=== PATIENT | male | born 1950 | race Caucasian/White ===

== ENCOUNTER 2018-03-17 12:25 | Observation (INO) | payer MEDICARE ==
[2018-03-17] MEDS ORDERED: SODIUM CHLORIDE 0.9% 500 ML IV STA (12:52)
--- NOTE | 2018-03-17 12:54 | ED ---
General Adult HPI - General Chief complaint: Neuro Symptoms/Deficit Stated complaint: rt arm numbess, weakness Time Seen by Provider: 03/17/18 12:25 Source: patient, RN notes reviewed Mode of arrival: wheelchair Limitations: no limitations - History of Present Illness Initial comments: This is a 67-year-old male with no significant past medical history. Patient states today about an hour prior to arrival he lost coordination of his right hand. Patient states when this down by his waist he felt as though he can move it fairly good but when he was up. Old to the ground he had no control at all. Patient states his last about 35 minutes total and about 10 minutes with significant symptoms. Patient states his symptoms have completely resolved at this point. Patient states he's had a little bit of a headache lately but not very bad right now. Patient denies any new or increased headache at this point time. Patient denies any visual disturbance patient denies patient comes. Patient denies any chest pain palpitations difficulty breathing shortness of breath. Patient denies abdominal pain patient denies nausea vomiting or diarrhea. Patient denies any recent fever chills or cough. Patient denies any similar symptoms in the past. - Related Data Home Medications Medication Instructions Recorded Confirmed Cefdinir [Omnicef] 300 mg PO Q12HR 03/17/18 03/17/18 Levothyroxine Sodium 150 mcg PO DAILY 03/17/18 03/17/18 Loratadine [Claritin] 10 mg PO DAILY 03/17/18 03/17/18 Allergies Allergy/AdvReac Type Severity Reaction Status Date / Time Penicillins Allergy Rash/Hives Verified 03/17/18 13:06 Review of Systems ROS Statement: Those systems with pertinent positive or pertinent negative responses have been documented in the HPI. ROS Other: All systems not noted in ROS Statement are negative. 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 Patient is nontoxic and well- hydrated and is in mild distress. ENT: Neck is soft and supple. No significant lymphadenopathy is noted. Oropharynx is clear. Moist mucous membranes. Neck has full range of motion without eliciting any pain. EYES: The sclera were anicteric and conjunctiva were pink and moist. Extraocular movements were intact and pupils were equal round and reactive to light. Eyelids were unremarkable. PULMONARY: Unlabored respirations. Good breath sounds bilaterally. No audible rales rhonchi or wheezing was noted. CARDIOVASCULAR: There is a regular rate and rhythm without any murmurs gallops or rubs. ABDOMEN: Soft and nontender with normal bowel sounds. No palpable organomegaly was noted. There is no palpable pulsatile mass. SKIN: Skin is clear with no lesions or rashes and otherwise unremarkable. NEUROLOGIC: Patient is alert and oriented x3. Cranial nerves II through XII are grossly intact. Motor and sensory are also intact. Normal speech, volume and content. Symmetrical smile. Cerebellar exam grossly intact. MUSCULOSKELETAL: Normal extremities with adequate strength and full range of motion. No lower extremity swelling or edema. No calf tenderness. LYMPHATICS: No significant lymphadenopathy is noted PSYCHIATRIC: Normal psychiatric evaluation. Normal interpersonal interactions appears functionally intact in deals appropriately with others. No signs of depression. No signs of anxiety. Limitations: no limitations Course Vital Signs 03/17/18 12:36 Temperature 98.2 F Pulse Rate 61 Respiratory 18 Rate Blood Pressure 171/96 O2 Sat by Pulse 100 Oximetry Medical Decision Making - Medical Decision Making EKG shows sinus bradycardia 57 bpm [place] interval is 174 QRS is 94 Q-T intervals 42 QTC is 391. Patient's EKG shows no ST segment elevation or depression or T wave abnormalities are noted. Patient's chest x-ray showed no acute normalities. Patient's CT of the brain showed no acute normalities. I will begin to reevaluate the patient patient was having no symptoms whatsoever at this time. I spoke with Dr. Vuong she agreed to admit the patient admitted the patient wrote admitting orders I consult the neurology - Lab Data Result diagrams: 03/17/18 13:05 03/17/18 13:05 Lab Results 03/17/18 03/17/18 03/17/18 Range/Units 12:54 13:05 13:05 WBC 6.4 (3.8-10.6) k/uL RBC 4.58 (4.30-5.90) m/uL Hgb 13.4 (13.0-17.5) gm/dL Hct 41.6 (39.0-53.0) % MCV 91.0 (80.0-100.0) fL MCH 29.2 (25.0-35.0) pg MCHC 32.2 (31.0-37.0) g/dL RDW 13.5 (11.5-15.5) % Plt Count 188 (150-450) k/uL Neutrophils % 62 % Lymphocytes % 23 % Monocytes % 8 % Eosinophils % 5 % Basophils % 1 % Neutrophils # 4.0 (1.3-7.7) k/uL Lymphocytes # 1.5 (1.0-4.8) k/uL Monocytes # 0.5 (0-1.0) k/uL Eosinophils # 0.3 (0-0.7) k/uL Basophils # 0.1 (0-0.2) k/uL PT (9.0-12.0) sec INR (<1.2) APTT (22.0-30.0) sec Sodium (137-145) mmol/L Potassium (3.5-5.1) mmol/L Chloride (98-107) mmol/L Carbon Dioxide (22-30) mmol/L Anion Gap mmol/L BUN (9-20) mg/dL Creatinine (0.66-1.25) mg/dL Est GFR (CKD-EPI)AfAm (>60 ml/min/1.73 sqM) Est GFR (CKD-EPI)NonAf (>60 ml/min/1.73 sqM) Glucose (74-99) mg/dL POC Glucose (mg/dL) 95 (75-99) mg/dL POC Glu Balance Bridge Assembler ID Silvia Alexander Calcium (8.4-10.2) mg/dL Total Bilirubin (0.2-1.3) mg/dL AST (17-59) U/L ALT (21-72) U/L Alkaline Phosphatase (38-126) U/L Total Creatine Kinase 160 (55-170) U/L CK-MB (CK-2) 1.7 (0.0-2.4) ng/mL CK-MB (CK-2) Rel Index 1.1 Troponin I <0.012 (0.000-0.034) ng/mL Total Protein (6.3-8.2) g/dL Albumin (3.5-5.0) g/dL 03/17/18 03/17/18 Range/Units 13:05 13:05 WBC (3.8-10.6) k/uL RBC (4.30-5.90) m/uL Hgb (13.0-17.5) gm/dL Hct (39.0-53.0) % MCV (80.0-100.0) fL MCH (25.0-35.0) pg MCHC (31.0-37.0) g/dL RDW (11.5-15.5) % Plt Count (150-450) k/uL Neutrophils % % Lymphocytes % % Monocytes % % Eosinophils % % Basophils % % Neutrophils # (1.3-7.7) k/uL Lymphocytes # (1.0-4.8) k/uL Monocytes # (0-1.0) k/uL Eosinophils # (0-0.7) k/uL Basophils # (0-0.2) k/uL PT 9.8 (9.0-12.0) sec INR 1.0 (<1.2) APTT 23.4 (22.0-30.0) sec Sodium 141 (137-145) mmol/L Potassium 4.6 (3.5-5.1) mmol/L Chloride 109 H (98-107) mmol/L Carbon Dioxide 24 (22-30) mmol/L Anion Gap 8 mmol/L BUN 22 H (9-20) mg/dL Creatinine 1.09 (0.66-1.25) mg/dL Est GFR (CKD-EPI)AfAm 82 (>60 ml/min/1.73 sqM) Est GFR (CKD-EPI)NonAf 71 (>60 ml/min/1.73 sqM) Glucose 98 (74-99) mg/dL POC Glucose (mg/dL) (75-99) mg/dL POC Glu Balance Bridge Assembler ID Calcium 10.0 (8.4-10.2) mg/dL Total Bilirubin 0.3 (0.2-1.3) mg/dL AST 25 (17-59) U/L ALT 31 (21-72) U/L Alkaline Phosphatase 59 (38-126) U/L Total Creatine Kinase (55-170) U/L CK-MB (CK-2) (0.0-2.4) ng/mL CK-MB (CK-2) Rel Index Troponin I (0.000-0.034) ng/mL Total Protein 6.9 (6.3-8.2) g/dL Albumin 4.4 (3.5-5.0) g/dL Disposition Clinical Impression: Transient cerebral ischemia Disposition: ADMITTED IP TO THIS HOSP Referrals: Nonstaff,Physician [Primary Care Provider] - 1-2 days Time of Disposition: 14:04
[2018-03-17 12:56] LABS: Glucose,Whole Blood 95 mg/dL (75-99)
[2018-03-17 13:21] LABS: Basophils # (A) 0.1 k/uL (0-0.2); Basophils % (A) 1 %; Eosinophils # (A) 0.3 k/uL (0-0.7); Eosinophils % (A) 5 %; HCT 41.6 % (39.0-53.0); HGB 13.4 gm/dL (13.0-17.5); Lymphocytes # (A) 1.5 k/uL (1.0-4.8); Lymphocytes % (A) 23 %; MCH 29.2 pg (25.0-35.0); MCHC 32.2 g/dL (31.0-37.0); Mean Platelet Volume 9.1; Monocytes # (A) 0.5 k/uL (0-1.0); Monocytes % (A) 8 %; Neutrophils % (A) 62 %; Platelet Count 188 k/uL (150-450); RBC 4.58 m/uL (4.30-5.90); RDW 13.5 % (11.5-15.5); WBC 6.4 k/uL (3.8-10.6)
[2018-03-17 13:30] LABS: Partial Thromboplastin Time 23.4 sec (22.0-30.0); Prothrombin Time 9.8 sec (9.0-12.0)
[2018-03-17 13:32] LABS: Albumin 4.4 g/dL (3.5-5.0); Potassium 4.6 mmol/L (3.5-5.1); Total Bilirubin 0.3 mg/dL (0.2-1.3); Total Protein 6.9 g/dL (6.3-8.2)
--- NOTE | 2018-03-17 13:33 | XR ---
EXAMINATION TYPE: XR chest 2V DATE OF EXAM: 03/17/2018 HISTORY: altered mental status. REFERENCE: NONE. FINDINGS: The lungs are clear. Pleural space are clear. The heart is not enlarged. IMPRESSION: NORMAL CHEST.
--- NOTE | 2018-03-17 13:33 | CT ---
EXAMINATION TYPE: CT brain wo con DATE OF EXAM: 03/17/2018 COMPARISON: NONE HISTORY: Right hand, arm weakness CT DLP: 1067.7 mGycm Automated exposure control for dose reduction was used. FINDINGS: There are mild atrophic changes. There is no acute focal lesion, mass effect or midline shift identif ied. I do not see evidence of intracranial blood. There is a 1.3 cm retention cyst or polyp arising f rom the anterior wall of the left maxillary sinus and a smaller retention cyst or polyp seen arising from the medial wall of the right maxillary sinus. There is also minimal mucoperiosteal thickening in volving one of the ethmoidal air cells on the left. The mastoids are clear. The bony calvarium is int act. IMPRESSION: 1. NO ACUTE INTRACRANIAL ABNORMALITY. 2. CHRONIC SINUS MUCOSAL DISEASE. 3. MILD DEGENERATIVE CHANGE.
[2018-03-17 13:39] LABS: Creatine Kinase 160 U/L (55-170)
[2018-03-17 13:52] LABS: Creatine Kinase MB 1.7 ng/mL (0.0-2.4); Troponin I <0.012 ng/mL (0.000-0.034)
[2018-03-17] MEDS ORDERED: DOCUSATE 100 MG CAP PO PRN (18:07)
[2018-03-17] MEDS ORDERED: MELATONIN 5 MG TABLET PO PRN (18:07)
[2018-03-17] MEDS ORDERED: ACETAMINOPHEN TAB 325 MG TAB PO PRN (18:07)
--- NOTE | 2018-03-17 18:07 | P.HPIM ---
History of Present Illness H&P Date: 03/17/18 Chief Complaint: right arm incoordination Patient is a 67-year-old male with a past medical history of hypothyroidism, squamous cell cancer of the neck, and ALLERGIES who presented with complaints of right arm discoordination. In the ER he underwent an extensive evaluation. On arrival his blood pressure was slightly elevated at 171/96. Initial laboratory analysis was unremarkable. CT of the head showed chronic sinusitis. Chest x-ray was negative. EKG showed sinus bradycardia. There is concern for TIA and he was admitted to the selective care unit for further monitoring. Patient seen and examined at bedside with present. He states he was visiting friends today and people were out in the yard. He noticed when he raised his right hand to put on some suntan location and that he was having difficulty controlling it. He states "it was like my hand was drunk but I wasn' t". When he put his hand near his waist the symptoms seemed to resolve, but when he raises again they recurred. He took a baby aspirin at home. He also noted some right shoulder numbness. The symptoms lasted approximately one hour and then he returned to baseline. He did not notice any definitive weakness of his arm during this time. He did not have any headache, blurry vision, loss of vision, difficulty with speech, other numbness or tingling, or other weakness. His only recent medication has been Ceftin ear that he started taking on Sunday for concerns of sinusitis. He had a runny nose, jaw pain on chewing, and ear pressure. He has had this many times in the past. He has never had a history of a stroke. He follows with Dr. Boudreaux in [place]. He does take levothyroxine on a chronic basis but no additional medications. He has a history of tobacco abuse who quit 20 years ago. He does have 3 beers daily. Review of Systems Pertinent positives and negatives as discussed in HPI, a complete review of systems was performed and all other systems are negative. 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 Medications and Allergies Home Medications Medication Instructions Recorded Confirmed Type Cefdinir [Omnicef] 300 mg PO Q12HR 03/17/18 03/17/18 History Levothyroxine Sodium 150 mcg PO DAILY 03/17/18 03/17/18 History Loratadine [Claritin] 10 mg PO DAILY 03/17/18 03/17/18 History Allergies Allergy/AdvReac Type Severity Reaction Status Date / Time Penicillins Allergy Rash/Hives Verified 03/17/18 13:06 Physical Exam Osteopathic Statement: *. No significant issues noted on an osteopathic structural exam other than those noted in the History and Physical/Consult. Vitals: Vital Signs Temp Pulse Pulse Resp BP BP Pulse Ox 03/17/18 16:00 65 16 03/17/18 14:41 97.5 F L 55 L 16 164/99 100 03/17/18 14:15 62 180/90 99 03/17/18 14:05 61 20 189/95 99 03/17/18 12:36 98.2 F 61 18 171/96 100 Intake and Output 03/17/18 03/17/18 03/17/18 06:59 14:59 22:59 Intake Total 10 Balance 10 Intake: IV 10 Invasive Line 1 10 Other: Voiding Method Toilet Weight 96.162 kg General: non toxic, no distress, appears at stated age, normal weight Derm: no unusual rashes/lesions no unusual ecchymoses, warm, dry Head: atraumatic, normocephalic, symmetric Eyes: EOMI, no lid lag, anicteric sclera, pupils equal round reactive to light ENT: Nose and ears atraumatic, no thrush, no pharyngeal erythema Neck: No thyromegaly, no cervical lymphadenopathy, trachea midline, supple, loss of muscle tissue over right neck with large surgical scar secondary to neck dissection. Mouth: no lip lesion, mucus membranes moist Cardiovascular: S1S2 reg, no murmur, positive posterior tibial pulse bilateral, no edema, capillary refill less than 2 seconds Lungs: CTA bilateral, no rhonchi, no rales , no accessory muscle use Abdominal: soft, nontender to palpation, no guarding, no appreciable organomegaly, normal bowel sounds Ext: no gross muscle atrophy, muscle strength 5 out of 5 in all 4 extremities grossly, no contractures, Neuro: CN II-XI grossly intact, light touch intact all 4 extremities, finger to nose within normal limits, no dysdiadochokinesis, normal [id number] Psych: Alert, oriented, appropriate affect Results CBC & Chem 7: 03/17/18 13:05 03/17/18 13:05 Labs: Abnormal Lab Results - Last 24 Hours (Table) 03/17/18 Range/Units 13:05 Chloride 109 H (98-107) mmol/L BUN 22 H (9-20) mg/dL Comments: EKG is reviewed by myself revealed sinus bradycardia, normal axis, normal intervals, and no significant ST-T wave changes Chest x-ray: report reviewed CT Scan - head: report reviewed Thrombosis Risk Factor Assmnt - DVT/VTE Prophylaxis DVT/VTE Prophylaxis: Low risk, early ambulation encouraged - Choose All That Apply Any of the Below Risk Factors Present?: No Other Risk Factors: Yes Each Risk Factor Represents 2 Points: Age 61-74 years Other congenital or acquired thrombophilia - If yes, enter type in comment: No Thrombosis Risk Factor Assessment Total Risk Factor Score: 2 Thrombosis Risk Factor Assessment Level: Low Risk Assessment and Plan Assessment: Probable TIA with right-sided hand discoordination -Telemetry, echocardiogram, CTA of the head and neck, aspirin, statin, neurology consult, neuro checks, PT/OT/speech evaluation, hemoglobin A1c and lipid profile in a.m. Elevated blood pressure without diagnosis of hypertension -Likely reactive to TIA, continue to follow blood pressures, would not treat unless systolic of greater than 200 or diastolic greater than 110 based on probable TIA within the last 24 hours. If remains elevated, then consider treatment Chronic sinusitis-continue cefdinir on discharge, Claritin Daily alcohol use-if prolonged hospital stay can consider CIWA protocol and thiamine supplementation. The patient is placed in observation with an anticipated less than 2 per night stay for evaluation of TIA. Surrogate decision-maker: CODE STATUS:Full DVT prophylaxis: SCD Discussed with: Patient, , nursing Anticipated discharge date: 03/[address]: home A total of 55 minutes was spent on the care of this complex patient more than 50 % of the time was spent in counseling and care coordination.
[2018-03-17] MEDS ORDERED: ATORVASTATIN 40 MG TAB PO SCH (21:00)
--- NOTE | 2018-03-17 21:52 | CT ---
EXAMINATION TYPE: CT angio head neck DATE OF EXAM: 03/17/2018 HISTORY: Hx of carotid dissection COMPARISON: CT brain dated 03/17/2018 CT DLP: 373.3 mGycm. Automated Exposure Control for Dose Reduction was Utilized. TECHNIQUE: CTA scan of the neck is performed with IV Contrast, patient injected with 65 mL of Isovue 370, axial images are obtained, coronal and sagittal reformatted images are reviewed. Three-D recons tructed images are created on an independent workstation and reviewed. FINDINGS: Carotid/Vascular Structures: Right common carotid artery and internal carotid are diminutive and supe rficially located with partial resection or atrophy of the right sternocleidomastoid noted. This may relate to prior surgical intervention for the patient's history of carotid dissection. However the ri ght carotid artery in its cervical portions appears patent as well as its visualized intracranial por tions with only minimal calcific atheromatous change of the cavernous portion. The left common caroti d artery is patent. Minimal nonhemodynamically significant stenosis is seen of the left carotid bulb. There is approximately 40% luminal narrowing in a segment of 6 mm within the proximal left internal carotid artery due to noncalcific atheromatous plaquing. Remaining portions of the cervical internal carotid artery are patent. Minimal nonhemodynamically significant calcific plaquing is seen in the ca vernous and supraclinoid portions of the left internal carotid artery. The basilar artery is patent as is the right and left vertebral artery. There is a conventional three -vessel branch pattern of the aortic arch. The posterior communicating arteries are diminutive but [place] pear intact. Therefore the [place] appears intact. No focal intracranial stenosis is identif ied. No intracranial aneurysm is seen. Other: Mild to moderate multilevel degenerative changes of the cervical spine are seen. Left maxillar y mucosal retention cyst versus polyp appears 1.1 cm. Mucosal retention cyst of the left ethmoid sinu s measures1.0 cm. Remaining visualized portions of the paranasal sinuses and mastoid air cells are we ll aerated. Multiple dental fillings creates spray artifact and partially obscure adjacent direct wallace rounding visualization. Minimal centrilobular emphysematous changes are seen of the lung apices. Additionally there is biapic al pleural-parenchymal scarring with air bronchograms, right greater than left suggesting a component of fibrosis with traction cylindrical bronchiectasis. IMPRESSION: 1. Diminutive caliber and superficial location of the right common carotid artery and internal caroti d artery in comparison to the left without intimal flap to indicate current dissection. No vascular o cclusion. Findings may be sequela of prior surgical intervention for dissection given the patient's h istory. 2. Approximately 40% short segment nonhemodynamically significant stenosis of the left internal carot id artery spanning 6 mm just distal to the bifurcation. 3. Biapical pleural parenchymal scarring with cylindrical traction bronchiectasis suggesting a compon ent of fibrosis. 4. No evidence of vascular occlusion or aneurysm.
--- NOTE | 2018-03-17 23:24 | P.CNNES ---
History of Present Illness Consult date: 03/17/18 History of Present Illness: The patient is a 67-year-old right-handed white male who states that he was applying suntan lotion today to his arms and he noticed his right arm was clumsy and numb. He felt that he lost control of his right arm. This lasted for 45-60 minutes. By the time he came to the emergency room his symptoms had resolved completely. He had only some slight numbness over the right shoulder area and that to resolved within shortly after coming to the ER. The patient denies having had any similar episode in the past. The patient denied any numbness or clumsiness of the right leg. He denied any other neurologic complaints such as speech disturbance blurred vision double vision ataxia or focal weakness. The patient had a CT of the brain which showed no acute intracranial abnormality. The patient had a CT angiogram of the head and neck which showed diminutive caliber of the right common carotid artery and internal carotid artery in comparison to the left. There was no vascular occlusion. There was evidence of prior surgical intervention. There was also proximally 40% nonhemodynamically significant stenosis of the left internal carotid artery. 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 Medications and Allergies Home Medications Medication Instructions Recorded Confirmed Type Cefdinir [Omnicef] 300 mg PO Q12HR 03/17/18 03/17/18 History Levothyroxine Sodium 150 mcg PO DAILY 03/17/18 03/17/18 History Loratadine [Claritin] 10 mg PO DAILY 03/17/18 03/17/18 History Allergies Allergy/AdvReac Type Severity Reaction Status Date / Time Penicillins Allergy Rash/Hives Verified 03/17/18 13:06 Physical Examination - Vital Signs Vital Signs: Vital Signs Temp Pulse Pulse Resp BP BP Pulse Ox 03/17/18 20:00 98.3 F 60 18 140/78 98 03/17/18 16:00 65 16 03/17/18 14:41 97.5 F L 55 L 16 164/99 100 03/17/18 14:15 62 180/90 99 03/17/18 14:05 61 20 189/95 99 03/17/18 12:36 98.2 F 61 18 171/96 100 Intake and Output 03/17/18 03/17/18 03/18/18 14:59 22:59 06:59 Intake Total 10 Balance 10 Intake: IV 10 Invasive Line 1 10 Other: Voiding Method Toilet Weight 96.162 kg - Constitutional General appearance: average body habitus - EENT EENT: PERRL, hearing intact, vision intact - Respiratory Respiratory: lungs clear - Cardiovascular Cardiovascular: regular rate, normal S1 - Neurologic Neurologic exam: Mental status: He was awake alert and oriented. There is no a aphasia or dysarthria. Cranial nerve examination: PERRL, EOMI, VFF, face symmetric, tongue midline Speech examination: intact Detailed motor examination: grossly full strength in all extremities Detailed sensory examination: intact Reflexes: 2+: bicep, knee - Psychiatric Psychiatric: mood/affect appropriate Results - Laboratory Findings CBC and BMP: 03/17/18 13:05 03/17/18 13:05 Abnormal Lab Findings: Abnormal Labs 03/17/18 13:05 Chloride 109 H BUN 22 H Assessment and Plan (1) Transient cerebral ischemia Current Visit: Yes Status: Acute SNOMED Code(s): 224029044 Plan: The patient is a 67-year-old man who presents with a transient episode of right arm clumsiness and numbness. The patient has likely had a TIA. He has been placed on aspirin. He had a CT of the brain which showed no acute abnormality. He had a CTA of the head and neck which did not show any hemodynamically significant stenosis. Recommend echocardiogram. Recommend MRI of the brain
[2018-03-17 23:54] LABS: Cholesterol 233 mg/dL (<200); HDL Cholesterol 68 mg/dL (40-60); LDL Cholesterol,Calculated 127 mg/dL (0-99); Triglycerides 191 mg/dL (<150)
[2018-03-18 08:00] VITALS: RESP 16
[2018-03-18] MEDS ORDERED: ASPIRIN 325 MG TAB PO SCH (09:00)
[2018-03-18] MEDS ORDERED: LORATADINE 10 MG TAB PO SCH (09:00)
[2018-03-18] MEDS ORDERED: FLUTICASONE 50MCG/SPRAY NASAL 16GM EA NOSTRIL SCH (09:00)
--- NOTE | 2018-03-18 11:17 | MR ---
EXAMINATION TYPE: MR brain wo/w con DATE OF EXAM: 03/18/2018 COMPARISON: CT brain from yesterday. HISTORY: tia/history of cancer. Patient admitted one day earlier for acute onset neuro deficits or ri ght hand and arm weakness TECHNIQUE: Multiplanar, multisequence images of the brain and brainstem is performed without and with IV contras t, utilizing 10 mL intravenous Gadavist . FINDINGS: Diffusion weighted images demonstrate no evidence of a recent infarct or other diffusion ab normality. There is no worrisome extra-axial fluid collection. There is mild ventricular and sulcal prominence consistent with mild diffuse age-related cerebral atrophy. There are scattered small foci of T2 hyperintensity seen throughout the superficial deep and periventricular white matter. There is a nonspecific confluent area near temporal parietal junction axial image 16. Midline structures demonstrate normal morphology. The craniocervical junction appears within normal limits. Post contrast images demonstrate no abnormal enhancement. The dural venous sinuses appear pa tent. Nasal septum is redemonstrated deviated to right of midline. There is redemonstration of 1.3 c m mucous retention cyst or polyp in the anterior left maxillary sinus. There is mild mucosal thickeni ng involving ethmoid sinuses bilaterally. The globes are intact. IMPRESSION: 1. No evidence of a recent infarct. 2. Mild diffuse age-related cerebral atrophy and moderate nonspecific white matter changes most likel y on basis of product of chronic small vessel ischemic change. No suspicious enhancement is noted. 3. Chronic paranasal sinus disease redemonstrated.
--- NOTE | 2018-03-18 12:16 | ECHOF ---
Referral Reason:Thrombus MEASUREMENTS -------- HEIGHT: 182.9 cm WEIGHT: 98.4 kg BP: 154/91 RVIDd: 3.0 cm (< 3.3) IVSd: 1.3 cm (0.6 - 1.1) LVIDd: 4.1 cm (3.9 - 5.3) LVPWd: 1.3 cm (0.6 - 1.1) IVSs: 1.6 cm LVIDs: 2.7 cm LVPWs: 1.7 cm LA Diam: 3.4 cm (2.7 - 3.8) LAESV Index (A-L): 27.51 ml/m Ao Diam: 3.4 cm (2.0 - 3.7) AV Cusp: 2.2 cm (1.5 - 2.6) MV EXCURSION: 16.703 mm (> 18.000) MV EF SLOPE: 67 mm/s (70 - 150) EPSS: 0.5 cm MV E Patric: 0.70 m/s MV DecT: 279 ms MV A Patric: 0.76 m/s MV E/A Ratio: 0.93 FINDINGS -------- Sinus rhythm. This was a technically good study. The left ventricular size is normal. There is mild concentric left ventricular hypertrophy. Overa ll left ventricular systolic function is normal with, an EF between 60 - 65 %. The right ventricle is normal in size. Normal LA size by volume 22+/-6 ml/m2. The right atrium is normal in size. The aortic valve is trileaflet and appears structurally normal. Mild mitral annular calcification present. The tricuspid valve appears structurally normal. Trace/mild (physiologic) pulmonic regurgitation. The aortic root size is normal. IVC Not well visulized. There is no pericardial effusion. CONCLUSIONS -------- 1. Sinus rhythm. 2. This was a technically good study. 3. The left ventricular size is normal. 4. There is mild concentric left ventricular hypertrophy. 5. Overall left ventricular systolic function is normal with, an EF between 60 - 65 %. 6. The right ventricle is normal in size. 7. Normal LA size by volume 22+/-6 ml/m2. 8. The right atrium is normal in size. 9. The aortic valve is trileaflet and appears structurally normal. 10. Mild mitral annular calcification present. 11. The tricuspid valve appears structurally normal. 12. Trace/mild (physiologic) pulmonic regurgitation. 13. The aortic root size is normal. 14. IVC Not well visulized. 15. There is no pericardial effusion. JET MAN: Basilia Mcclure RDCS
[2018-03-18 14:40] LABS: Hemoglobin A1C 5.5 % (4.0-6.0)
[2018-03-18 15:05] VITALS: BP 138/86; PULSE 65; TEMP 97.1
--- NOTE | 2018-03-18 15:09 | P.DS ---
Providers Date of admission: 03/17/18 14:05 Attending physician: Kala Vuong DO Consults: 03/17/18 14:05 Consult Physician Routine Consulting Provider: Russ Howe Consult Reason/Comments: TIA Do you want consulting provider notified?: Yes Primary care physician: Physician Nonstaff - Discharge Diagnosis(es) (1) Transient cerebral ischemia She had some Mendez dimensions studies. He was started on aspirin and Lipitor. He was evaluated by neurology. All his symptoms resolved and he was stable Patient was discharged home on aspirin and Lipitor. He was advised to follow- up with primary care physician and to be further evaluated by loop recorder for any occult A. fib. Neurology cleared the patient for discharge Current Visit: Yes Status: Acute Priority: High Hospital Course: This 67-year-old gentleman without significant medical history who presented to emergency department with complaint of right arm being weak and numb feeling weird. He was not able to have control over the arm . He started suddenly. The pain in the shoulder and neck. There was no any weakness in the extremities or any headache or vision changes described. This sensation lasted about 5-6 minutes. Patient came to emergency department and by that time the strange feeling was already going away and was minimal. He had CT of the head that was unremarkable he was admitted for further correlation. Patient was evaluated by neurology and they felt the patient had episode of TIA. Patient EKG shows normal sinus rhythm and telemetry didn't reveal any arrhythmias. Echocardiogram was unremarkable with preserved EF and no intracavitary thrombi or valvular abnormalities. MRI of the brain showed atrophic and chronic ischemic changes but no acute findings. Patient was maintained aspirin and statin. On day of the discharge I saw and evaluated the patient. All of his symptoms completely resolved and there are no recurrence of any similar symptoms within 24 hours. Patient denied any shortness of breath chest pain nausea vomiting headache or any discomfort. He was able to ambulate in the room and had a full control using his arm. REVIEW OF SYSTEMS: CONSTITUTIONAL: She denies any recent weight changes, fevers or night sweats. HEENT: Eyes: She has had no changes in her vision. No eye pain. No discharge. ENT: She had no hearing changes, no throat pain, no sinus difficulties. No hoarseness. CARDIOVASCULAR: She denies any chest pain or abnormal heart beats, or any swelling in her ankles or feet. RESPIRATORY: No wheezing or coughing. GASTROINTESTINAL: As noted above in history of present illness. GENITOURINARY: She denies any urinary urgency, frequency or burning, and there has been no blood in her urine. She has no flank pain. She has also had no vaginal discharge or bleeding. MUSCULOSKELETAL: She notes full range of motion of all her joints without pain or swelling. ENDOCRINE: She denies any heat or cold intolerance or excessive thirst or urination. NEUROLOGICAL: Currently, no headache. She has no vision changes, or fainting. No numbness or tingling. PSYCHIATRIC: As noted above in past medical history. Echo exam vital signs are reviewed and there were stable Head and neck examination no facial asymmetry no scleral icterus No neck masses. He has scarring on the right side of his neck and they're on thyroid. Lungs are clear to auscultation Cardiovascular regular rhythm and rate S1-S2 no murmurs rubs or gallops Abdomen soft nontender nondistended Extremities without peripheral edema Neurologic cranial nerves II through XII grossly intact. Motor strength in upper and lower extremities were intact. Sensory to light touch intact there were no pathological reflexes Pertinent Studies: CT and CTA of the neck because without any significant stenosis there is a 40% stenosis in the right side. MRI of the brain chronic ischemic changes and atrophic changes no acute findings Echocardiogram EF 55-60% without any intracavitary thrombus. Patient Condition at Discharge: Good Plan - Discharge Summary Discharge Rx Participant: No New Discharge Prescriptions: New Aspirin [Adult Low Dose Aspirin EC] 81 mg PO DAILY #30 tablet. Atorvastatin [Lipitor] 40 mg PO HS #30 tab Fluticasone Nasal [place] [Flonase Nasal [place]] 2 spray EA NOSTRIL DAILY spr Continue Loratadine [Claritin] 10 mg PO DAILY Levothyroxine Sodium 150 mcg PO DAILY Discontinued Cefdinir [Omnicef] 300 mg PO Q12HR Discharge Medication List Levothyroxine Sodium 150 mcg PO DAILY 03/17/18 [History] Loratadine [Claritin] 10 mg PO DAILY 03/17/18 [History] Aspirin [Adult Low Dose Aspirin EC] 81 mg PO DAILY #30 tablet. 03/18/18 [Rx] Atorvastatin [Lipitor] 40 mg PO HS #30 tab 03/18/18 [Rx] Fluticasone Nasal [place] [Flonase Nasal [place]] 2 spray EA NOSTRIL DAILY spr [Rx] Follow up Appointment(s)/Referral(s): Nonstaff,Physician [Primary Care Provider] - 1-2 days ([facility] DR MONI FABIAN IN [place]) Activity/Diet/Wound Care/Special Instructions: Resume preadmission diet Regular activity Follow-up with your primary care physician, may need to discuss about loop recorder Discharge Disposition: HOME SELF-CARE
== END 2018-03-18 15:54 | disposition home or self-care (01) ==
LOC: EC 12:25 → 6SEL 14:05
PROVIDERS: ADMIT Internal Medicine; ATTEND Internal Medicine
DX: G45.9 Transient cerebral ischemic attack, unspecified (principal); R03.0 Elevated blood-pressure reading, without diagnosis of hypertension; E03.9 Hypothyroidism, unspecified; J30.2 Other seasonal allergic rhinitis; J32.9 Chronic sinusitis, unspecified; Z72.89 Other problems related to lifestyle; Z88.0 Allergy status to penicillin; Z79.2 Long term (current) use of antibiotics; Z79.890 Hormone replacement therapy; Z79.899 Other long term (current) drug therapy; Z87.891 Personal history of nicotine dependence; Z85.89 Personal history of malignant neoplasm of other organs and systems; Z92.3 Personal history of irradiation; Z82.49 Family history of ischemic heart disease and other diseases of the circulatory system
CPT/HCPCS: 99285 ×2; 36415; 93005; 93306; 97116; 97161; 97165; 92610; 80061; 80053; 82550; 82553; 84484; 85025; 85610; 85730; 83036; 71046; 70496; 70450; 70498; 70553; G0378 ×2; A9581; Q9967